=== PATIENT | female | born 1935 | race African-American/Black ===

== ENCOUNTER → 2016-07-19 | Outpatient (CLI) | payer MEDICARE, BC ==
--- NOTE | 2016-07-19 11:07 | REP ---
MR BRAIN WITHOUT CONTRAST: HISTORY: Cognitive decline. Areas of increased signal intensity on T2-weighted images are present in the periventricular and subcortical white matter. This represents small vessel ischemic disease. There is no intraparenchymal hemorrhage, infarct, mass or midline shift. The sella turcica is partially empty. The ventricular system and cortical sulci are dilated consistent with mild volume loss. There is no extracerebral collection. Mucosal thickening is present in the ethmoid, sphenoid and right maxillary sinuses and right mastoid air cells. IMPRESSION: 1. Small vessel ischemic disease. 2. Mild volume loss. Signed by Farrukh Rondon MD 07/19/2016 11:15 A
== END ==
LOC: M RAD 10:01
PROVIDERS: ATTEND Family Medicine
DX: R41.89 Other symptoms and signs involving cognitive functions and awareness (principal)

== ENCOUNTER → 2016-10-04 | Outpatient (CLI) | payer MEDICARE, BC ==
--- NOTE | 2016-10-04 15:40 | REP ---
Clinical: Follow-up pulmonary nodule. Comparison: 07/02/2016. Findings: Chronic cardiomegaly and pulmonary vascular congestion is again noted and unchanged. A 14 mm pulmonary nodule is again identified in the left base (image 78) abutting the diaphragm and appears unchanged. No further acute pulmonary parenchymal consolidation, nodule or mass lesion is appreciated. No pleural effusion/reaction or pneumothorax. Tracheobronchial tree is patent. Mediastinum demonstrates stable cardiomegaly and mild atherosclerotic changes to the thoracic aorta. Surrounding musculoskeletal structures are intact. Impression: Stable solitary 14 mm pulmonary nodule in the left lung base. Chronic stable cardiomegaly and pulmonary vascular congestion. No new acute mediastinal or pleuroparenchymal process appreciated. Signed by Avery Mccarthy MD 10/04/2016 11:27 A
== END ==
LOC: M RAD 10:52 → EDBD 11:00
PROVIDERS: ATTEND Family Medicine
DX: R91.1 Solitary pulmonary nodule (principal)

== ENCOUNTER → 2017-04-11 | Outpatient (CLI) | payer MEDICARE, BC ==
--- NOTE | 2017-04-11 18:47 | REP ---
Chest CT without contrast: History: Incidental lung nodule. Comparison chest CT study is reviewed from 10/04/2016. 07/02/2016. CT study is also reviewed. CT findings: The previously noted soft tissue nodule in the left lower lobe just above the left hemidiaphragm has enlarged in the interval since the 10/04/2016. It measured 14 mm previously and measures 22 mm in greatest diameter currently. Is transverse dimensions are 13 x 9 mm. This is considered suspicious for primary lung malignancy. There is an area of pleuroparenchymal linear opacity in the left upper lobe laterally which is consistent with plate-like atelectasis. This is a new finding. There is mild biapical pleuroparenchymal fibrosis which is unchanged. No evidence of endobronchial disease is seen. There is no hilar or mediastinal mass or adenopathy appreciated. No adrenal lesion is seen. Study is otherwise unremarkable. Impression: Enlarging 2.2 cm left lower lobe noncalcified lung nodule suspicious for primary lung malignancy. Consideration could be given to PET/CT scanning and attempted CT guided needle biopsy. Signed by Alfredo Christine MD 04/11/2017 08:03 P
== END ==
LOC: M RAD 17:01 → EDBD 17:30
PROVIDERS: ATTEND Family Medicine
DX: R91.1 Solitary pulmonary nodule (principal)

== ENCOUNTER → 2017-07-18 | Outpatient (REF) | payer MEDICARE, BC ==
[2017-07-18 13:34] LABS: HEMATOCRIT 30.7 % (36.0-47.0); HEMOGLOBIN 9.4 g/dl (12.0-16.0); MEAN CORPUSCULAR HEMOGLOBIN 22.2 pg (27.0-33.0); MEAN CORPUSCULAR HGB CONC 30.6 g/dl (32.0-36.5); MEAN CORPUSCULAR VOLUME 72.4 fl (80.0-96.0); PLATELET COUNT, AUTOMATED 221 10^3/uL (150-450); RED BLOOD COUNT 4.24 10^6/uL (4.00-5.40); RED CELL DISTRIBUTION WIDTH 14.3 % (11.5-14.5); WHITE BLOOD COUNT 4.6 10^3/uL (4.0-10.0)
[2017-07-18 14:12] LABS: CHOLESTEROL LEVEL 155 MG/DL (<200); CHOLESTEROL RISK RATIO 3.163 (<5); FERRITIN 84 NG/ML (8-252); GLUCOSE, FASTING 69 MG/DL (83-110); HDL CHOLESTEROL 49 MG/DL (>40); IRON (FE) 56 UG/DL (50-170); LDL CHOLESTEROL 94.6 MG/DL (<100); NON-HDL-C 106 MG/DL; TRIGLYCERIDES LEVEL 57 MG/DL (<150)
== END ==
LOC: M SFHCPLAZ 11:05
DX: D50.9 Iron deficiency anemia, unspecified (principal); Z13.1 Encounter for screening for diabetes mellitus; Z13.220 Encounter for screening for lipoid disorders; Z79.899 Other long term (current) drug therapy
CPT/HCPCS: 82947

== ENCOUNTER → 2018-07-31 | Outpatient (CLI) | payer MEDICARE, BC ==
--- NOTE | 2018-08-03 12:15 | DEXA ---
AP SPINE L1 - L4 0.957 -1.5 -0.7 LT FEMUR TOTAL 0.700 -2.4 -1.2 LT NECK 0.719 -2.3 -0.9 RT FEMUR TOTAL 0.722 -2.3 -1.0 RT NECK 0.729 -2.2 -0.8 TOTAL BODY TOTAL OTHER COMMENTS: There is low bone density of the spine and hips. FOLLOW-UP: Recommendation for the next bone density exam: 2 years. CHRISTOS
== END ==
LOC: M WHC 12:27
PROVIDERS: ATTEND Family Medicine
DX: M81.0 Age-related osteoporosis without current pathological fracture (principal)
CPT/HCPCS: 77080; G0463

== ENCOUNTER → 2018-08-21 | Outpatient (REF) | payer MEDICARE, BC ==
[2018-08-21 18:49] LABS: HEMATOCRIT 33.8 % (36.0-47.0); HEMOGLOBIN 10.5 g/dl (12.0-15.5); MEAN CORPUSCULAR HEMOGLOBIN 21.7 pg (27.0-33.0); MEAN CORPUSCULAR HGB CONC 31.1 g/dl (32.0-36.5); MEAN CORPUSCULAR VOLUME 69.8 fl (80.0-96.0); PLATELET COUNT, AUTOMATED 195 10^3/uL (150-450); RED BLOOD COUNT 4.84 10^6/uL (4.00-5.40); WHITE BLOOD COUNT 5.4 10^3/uL (4.0-10.0)
[2018-08-21 19:14] LABS: ALBUMIN 3.6 GM/DL (3.2-5.2); ALT/SGPT 18 U/L (12-78); BILIRUBIN,TOTAL 0.9 MG/DL (0.2-1.0); BLOOD UREA NITROGEN 11 MG/DL (7-18); CALCIUM LEVEL 8.7 MG/DL (8.8-10.2); CARBON DIOXIDE LEVEL 27 MEQ/L (21-32); CHLORIDE LEVEL 109 MEQ/L (98-107); CREATININE FOR GFR 0.68 MG/DL (0.55-1.30); FERRITIN 87 NG/ML (8-252); GLOMERULAR FILTRATION RATE > 60.0 (>32); GLUCOSE, FASTING 76 MG/DL (70-100); IRON (FE) 39 UG/DL (50-170); PERCENT SATURATION 14.1 % (13.2-45.0); POTASSIUM SERUM 4.5 MEQ/L (3.5-5.1); SODIUM LEVEL 142 MEQ/L (136-145); TOTAL IRON BINDING CAPACITY 277 UG/DL (250-450); TOTAL PROTEIN 7.5 GM/DL (6.4-8.2)
[2018-08-21 19:26] LABS: TOTAL 25(OH) VITAMIN D 9.5 NG/ML (30.0-100.0)
== END ==
LOC: M SFHCPLAZ 14:38
PROVIDERS: ATTEND Family Medicine
DX: M85.851 Other specified disorders of bone density and structure, right thigh (principal); D50.9 Iron deficiency anemia, unspecified; K59.1 Functional diarrhea
CPT/HCPCS: 36415; 80053; 82306; 82728; 83550; 85027; G0463

== ENCOUNTER 2019-01-23 23:19 | Emergency (ER) | payer MEDICARE, BC ==
[~2019-01-23] VITALS: Ht 152.4 cm; Wt 38.0 kg
[2019-01-24 00:34] LABS: BASO % 0.3 % (0.0-1.0); EOS % 0.6 % (0.0-3.0); HEMATOCRIT 36.5 % (36.0-47.0); HEMOGLOBIN 11.4 g/dl (12.0-15.5); LYMPH # 0.8 10^3/uL (1.5-4.5); LYMPH % 12.7 % (24.0-44.0); MEAN CORPUSCULAR HEMOGLOBIN 21.9 pg (27.0-33.0); MEAN CORPUSCULAR HGB CONC 31.2 g/dl (32.0-36.5); MEAN CORPUSCULAR VOLUME 70.1 fl (80.0-96.0); MONO # 0.4 10^3/uL (0.0-0.8); MONO % 5.9 % (0.0-5.0); NEUTROPHILS # 5.3 10^3/uL (1.8-7.7); NEUTROPHILS % 80.2 % (36.0-66.0); PLATELET COUNT, AUTOMATED 230 10^3/uL (150-450); RED BLOOD COUNT 5.21 10^6/uL (4.00-5.40); WHITE BLOOD COUNT 6.6 10^3/uL (4.0-10.0)
[2019-01-24 00:37] LABS: INR 1.21; PARTIAL THROMBOPLASTIN TIME 29.1 SECONDS (25.0-38.4)
[2019-01-24] MEDS ORDERED: ALTEPLASE 100MG INJ (J2997) As Ordered ONE (00:39)
--- NOTE | 2019-01-24 00:46 | REPVR ---
EXAM: CT Head Without Contrast EXAM DATE/TIME: 01/23/2019 11:26 PM CLINICAL HISTORY: 83 years old, female; Weakness, facial TECHNIQUE: Imaging protocol: Axial computed tomography images of the head without contrast. Radiation optimization: All CT scans at this facility use at least one of these dose optimization techniques: automated exposure control; mA and/or kV adjustment per patient size (includes targeted exams where dose is matched to clinical indication); or iterative reconstruction. COMPARISON: MRI-Brain without Contrast 07/19/2016 10:13 AM FINDINGS: Brain: Mild hypodensities in the periventricular white matter which are consistent with chronic small vessel ischemic disease. No acute mass effect. Cortical sequeira-white matter differentiation is preserved. No acute intracranial hemorrhage. Diffuse cerebral atrophy consistent with patient's age. Ventricles: Ventricles are in proportion to the degree of atrophy. Bones/joints: Unremarkable. No acute fracture. Sinuses: Visualized sinuses are unremarkable. No fluid levels. Mastoid air cells: Visualized mastoid air cells are well aerated. No mastoid effusion. Soft tissues: Unremarkable. Vasculature: There is atherosclerotic calcification of the cerebral arteries. IMPRESSION: 1. No cerebral changes of acute infarct at this time. 2. Mild hypodensities in the periventricular white matter which are consistent with chronic small vessel ischemic disease. Electronically signed by: Renee Manrique On 01/24/2019 00:45:49 AM
[2019-01-24 00:55] LABS: ALBUMIN 3.6 GM/DL (3.2-5.2); ALT/SGPT 14 U/L (12-78); BILIRUBIN,DIRECT 0.2 MG/DL (0.0-0.2); BILIRUBIN,TOTAL 0.6 MG/DL (0.2-1.0); BLOOD UREA NITROGEN 24 MG/DL (7-18); CALCIUM LEVEL 9.4 MG/DL (8.8-10.2); CARBON DIOXIDE LEVEL 26 MEQ/L (21-32); CHLORIDE LEVEL 107 MEQ/L (98-107); CK-MB VALUE MASS 1.2 NG/ML (<3.6); CPK CREATINE PHOSPHOKINASE 43 U/L (26-192); CREATININE FOR GFR 0.69 MG/DL (0.55-1.30); GLOMERULAR FILTRATION RATE > 60.0 (>32); GLUCOSE, FASTING 91 MG/DL (70-100); MB/CK RELATIVE INDEX 2.79 (< OR =4); POTASSIUM SERUM 4.3 MEQ/L (3.5-5.1); SODIUM LEVEL 142 MEQ/L (136-145); THYROID STIMULATING HORMONE 0.611 uIU/ML (0.358-3.740); TOTAL PROTEIN 8.3 GM/DL (6.4-8.2); TROPONIN I 0.06 NG/ML (< 0.10)
[2019-01-24] MEDS ORDERED: ALTEPLASE RECOMBINANT IV ONE (01:00)
[2019-01-24] MEDS ORDERED: DILUENT IV ONE (01:00)
[2019-01-24] MEDS ORDERED: ALTEPLASE 100MG INJ (J2997) IV ONE (01:00)
[2019-01-24] MEDS ORDERED: LIDOCAINE 2% 5ML JELLY UROJET TOP ONE (01:00)
[2019-01-24] MEDS ORDERED: ISOVUE-370 76% 100ML VIAL (Q9967) As Ordered ONE (01:04)
[2019-01-24 01:38] VITALS: BP 136/82
--- NOTE | 2019-01-24 02:06 | REPVR ---
EXAM: CT Angiography Neck With Contrast EXAM DATE/TIME: 01/24/2019 1:27 AM CLINICAL HISTORY: 83 years old, female; Weakness; Additional Info: CVA TECHNIQUE: Imaging protocol: Axial computed tomographic angiography images of the neck with intravenous contrast using CT angiography protocol. Coronal and sagittal reformatted images were created and reviewed. 3D rendering: MIP and 3D reconstructed images were created and reviewed. Radiation optimization: All CT scans at this facility use at least one of these dose optimization techniques: automated exposure control; mA and/or kV adjustment per patient size (includes targeted exams where dose is matched to clinical indication); or iterative reconstruction. Contrast material: ISOVUE 370; Contrast volume: 75 ml; Contrast route: IV; COMPARISON: No relevant prior studies available. FINDINGS: Limitations: There is dense venous contrast refluxing in the left-sided neck. Examination is limited by motion artifact. VASCULATURE: Right common carotid artery: Unremarkable. No stenosis. No dissection or occlusion. Right internal carotid artery: Tortuous right ICA. Less than 50% focal stenosis of the mid right ICA secondary to kinking. Right external carotid artery: Unremarkable. No occlusion or stenosis of the origin. Right vertebral artery: Unremarkable. No stenosis. No dissection or occlusion. Left common carotid artery: Left common carotid artery also arises off the brachiocephalic trunk. No stenosis. No dissection or occlusion. Left internal carotid artery: Tortuous left ICA. No stenosis. No dissection or occlusion. Left external carotid artery: Unremarkable. No occlusion or stenosis of the origin. Left vertebral artery: Unremarkable. No stenosis. No dissection or occlusion. Aorta: Mild atherosclerotic disease of the aortic arch. Other vasculature: Severe stenosis of the brachiocephalic vein. There is gas in the venous structures in the head and neck consistent with recent venipuncture. NECK: Bones/joints: Mild degenerative spine. No acute fracture. Soft tissues: Normal. No significant soft tissue swelling. Lungs: Mild biapical fibrosis. Dental: Patient is nearly edentulous. Multiple dental cavities. IMPRESSION: 1. Less than 50% focal stenosis of the mid right ICA secondary to kinking. 2. No left carotid artery stenosis. 3. Severe stenosis of the brachiocephalic vein. 4. Multiple dental cavities. 5. Additional findings as described. COMMENT: Reference per NASCET criteria for degree of stenosis: Mild: less than 50% stenosis. Moderate: 50-69% stenosis. Severe: 70-94% stenosis. Near occlusion: 95-99% stenosis. Electronically signed by: Renee Manrique On 01/24/2019 02:06:21 AM
--- NOTE | 2019-01-24 02:09 | REPVR ---
EXAM: CT Angiography Head With Contrast EXAM DATE/TIME: 01/24/2019 1:27 AM CLINICAL HISTORY: 83 years old, female; Weakness; Additional Info: CVA TECHNIQUE: Imaging protocol: Axial computed tomographic angiography images of the head with intravenous contrast using CT angiography protocol. Coronal and sagittal reformatted images were created and reviewed. 3D rendering: MIP and 3D reconstructed images were created and reviewed. Radiation optimization: All CT scans at this facility use at least one of these dose optimization techniques: automated exposure control; mA and/or kV adjustment per patient size (includes targeted exams where dose is matched to clinical indication); or iterative reconstruction. Contrast material: ISOVUE 370; Contrast volume: 75 ml; Contrast route: IV; COMPARISON: CT Head without contrast 01/23/2019 11:23 PM FINDINGS: Right internal carotid artery: Unremarkable. Intracranial segment is patent with no significant stenosis. No aneurysm. Right anterior cerebral artery: Unremarkable. No occlusion or significant stenosis. No aneurysm. Right middle cerebral artery: Unremarkable. No occlusion or significant stenosis. No aneurysm. Right posterior cerebral artery: Unremarkable. No occlusion or significant stenosis. No aneurysm. Right vertebral artery: Unremarkable. No occlusion or significant stenosis. No aneurysm. Left internal carotid artery: Unremarkable. Intracranial segment is patent with no significant stenosis. No aneurysm. Left anterior cerebral artery: Unremarkable. No occlusion or significant stenosis. No aneurysm. Left middle cerebral artery: Occlusion of the distal left M1 segment. Small flow in the superior left M2 trunk. Inferior left M2 trunk is occluded. Left posterior cerebral artery: Incidental origin of left FLOOR WAXER. No occlusion or significant stenosis. No aneurysm. Left vertebral artery: Unremarkable. No occlusion or significant stenosis. No aneurysm. Basilar artery: Unremarkable. No occlusion or significant stenosis. No aneurysm. HEAD: Brain: Moderate hypodensities in the deep white matter which are consistent with chronic small vessel ischemic disease. 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 Electronically signed by: Renee Manrique On 01/24/2019 02:08:54 AM
--- NOTE | 2019-01-24 07:05 | REP ---
Portable chest, 11:58 p.m., single AP view with the patient semi upright: Comparison is the chest CT of 04/11/2017. There is a large focal density inferomedially in the right hemithorax. This could represent right lower lobe collapse. There is a cutoff sign in the right mainstem bronchus. The remainder of the right lung is clear. By CT the patient has a known left lower lobe lung nodule. I suspect this nodule is faintly visible adjacent to the cardiac apex. The left lung is otherwise clear. Cardiomegaly. The mediastinum appears widened suggestive of a mediastinal mass versus artifact from portable positioning. Impression: Possible right lower lobe collapse. , a sign in the right mainstem bronchus. Possible mediastinal mass. Left lower lobe lung nodule. Follow-up CT is recommended. These results are telephoned to the emergency department physician, Dr. Nieto. Electronically Signed by Cr Cisneros MD 01/24/2019 06:57 A
--- NOTE | 2019-01-25 05:38 | ECGEPIP ---
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
== END 2019-01-24 01:59 | disposition short-term general hospital (02) ==
LOC: M ED 23:19
DX: I63.9 Cerebral infarction, unspecified (principal); I67.82 Cerebral ischemia; R91.8 Other nonspecific abnormal finding of lung field; I65.21 Occlusion and stenosis of right carotid artery; I87.1 Compression of vein; I49.3 Ventricular premature depolarization; I44.4 Left anterior fascicular block; H40.9 Unspecified glaucoma; D50.9 Iron deficiency anemia, unspecified
CPT/HCPCS: 36415; 51702; 70450; 70496; 70498; 71045; 80048; 80076; 82550; 82553; 84443; 84484; 85025; 85610; 85730; 93005; 93041; 94760; 96365; 99291; J2997; Q9967